=== PATIENT | male | born 1955 | race Caucasian/White ===

== ENCOUNTER 2018-02-11 18:46 | Observation (INO) ==
[2018-02-11] MEDS ORDERED: 0.9 % Sodium Chloride 1,000 ML IVC ONE (19:58)
[2018-02-11] MEDS ORDERED: Ondansetron 4 MG/2 ML VIAL IVP ONE (19:58)
--- NOTE | 2018-02-11 20:02 | Emergency Department Note ---
Disposition Clinical Impression: Diarrhea Qualifiers: Diarrhea type: unspecified type Qualified Code(s): R19.7 - Diarrhea, unspecified Nausea and vomiting Qualifiers: Vomiting type: unspecified Vomiting Intractability: intractable Qualified Code(s): R11.2 - Nausea with vomiting, unspecified Disposition: Admitted As Inpatient Condition: Undetermined [facility]: [facility]Primary Care Provider[facility] - Forms: ED Satisfaction Letter Time of Disposition: 22:51 Nausea/Vomiting/Diarrhea HPI - General Chief complaint: ED Nausea/Vomiting/Diarrhea Stated complaint: Vomiting,diarrhea, exposed to c-diff Time Seen by Provider: 02/11/18 19:17 Source: patient Mode of arrival: ambulatory Limitations: no limitations Nursing Notes Reviewed: Yes Vital Signs Reviewed: Yes - History of Present Illness HPI Narrative: 62-year-old male with history of hypertension arrives to the emergency department with complaint of diffuse abdominal pain, nausea, vomiting, diarrhea. He is also feeling like he is given a pass out. The patient is in the bed crying because he is not feeling well. The patient states that his had similar complaints one day ago. Patient denies any melena, hematochezia, chest pain, difficulty breathing. He should not is otherwise without any other complaints at this time. - Related Data Home Medications Medication Instructions Recorded Confirmed RX: Aspirin [Lo-Dose Aspirin EC] 81 mg PO DAILY 01/13/17 01/13/17 RX: Atenolol [Tenormin] 25 mg PO DAILY 01/13/17 01/13/17 RX: Atorvastatin Calcium [Lipitor] 20 mg PO HS 01/13/17 01/13/17 RX: Gabapentin [Neurontin] 300 mg PO TID 01/13/17 01/13/17 RX: Meloxicam [Mobic] 7.5 mg PO DAILY 01/13/17 01/13/17 RX: Tramadol HCl [Ultram] 50 mg PO TID PRN 01/13/17 01/13/17 Previous Rx's Medication Instructions Recorded RX: OxyCODONE/APAP 10/325 1 each PO Q6HR PRN #24 tablet 01/13/17 [Percocet 10/325 MG] Allergies Allergy/AdvReac Type Severity Reaction Status Date / Time No Known Allergies Allergy Verified 01/13/17 13:00 All systems ED: reviewed and negative except as stated. Constitutional: Reports: weakness. Denies: fever, chills ENT ED: Denies: dysphagia Cardiovascular: Denies: chest pain Respiratory: Denies: dyspnea Gastrointestinal: Reports: abdominal pain, nausea, vomiting, diarrhea. Denies: constipation, hematemesis, melena, hematochezia Genitourinary: Denies: urgency, dysuria Musculoskeletal: Denies: back pain Integumentary: Denies: rash Neurological: Denies: headache Past Medical History - Past Medical History Attestation: Yes The following information was validated with the patient. Source: patient, old records reviewed Medical history: Reports: GERD, hyperlipidemia, hypertension, kidney stones, RA Surgical history: Reports: non-contributory Psychiatric history: Reports: no psych history - Social History Smoking Status: Never smoker Smokeless Tobacco Status: No Alcohol use: Reports: rarely Drug use: Reports: none Physical Exam - General Limitations: no limitations General appearance: alert, in distress (secondary to pain) - Head Head exam: atraumatic, normocephalic, normal inspection - Eye Eye exam: Present: normal appearance, PERRL, EOMI - ENT ENT exam: normal exam, normal oropharynx, mucous membranes moist - Neck Neck exam: Present: normal inspection - Chest Chest inspection: Present: normal inspection, symmetric chest wall rise - Respiratory Respiratory exam: Present: normal lung sounds bilaterally - Cardiovascular Cardiovascular exam: Present: regular rate, normal rhythm, normal heart sounds - Abdominal Exam Abdominal exam: Present: soft, tenderness (diffuse). Absent: distention, guarding, rebound, rigidity, Varela's sign, Rovsing's sign, hernia - Extremities Exam Extremities exam: Present: normal inspection, full ROM. Absent: tenderness, pedal edema - Neurological Exam Neurological exam: Present: alert, oriented X3 - Skin Skin exam: Present: warm, dry, intact, normal color Course Vital Signs Temperature 97.9 F 02/11/18 19:00 Pulse Rate 95 02/11/18 19:00 Respiratory Rate 18 02/11/18 19:00 Blood Pressure 125/75 02/11/18 19:00 O2 Sat by Pulse Oximetry 96 02/11/18 19:00 Temperature 97.9 F 02/11/18 19:38 Pulse Rate 95 02/11/18 22:31 Respiratory Rate 20 02/11/18 22:31 Blood Pressure 142/102 02/11/18 22:31 O2 Sat by Pulse Oximetry 95 02/11/18 22:31 Oxygen Delivery Oxygen Delivery Room Air Nausea/Vomiting/Diarrhea - MDM Narrative Medical decision making narrative: Patient's work-up in the emergency department demonstrates no acute process with the exception of likely ileitis secondary to diarrheal infection. The patient will be admitted because we cannot get his nausea and vomiting under control here in the emergency department. The patient states he does not for comfortable going home at this time because of the vomiting. The patient states his pain is a little bit better but denies any other complaints at this time. We will admit the patient to the hospital for nausea control and IV hydration. No further questions or concerns noted. Accepted by Dr. Dueñas. - Lab Data Lab results reviewed: Yes I reviewed the patient's lab results. Result diagrams: 02/11/18 19:49 02/11/18 19:49 Lab Results 02/11/18 02/11/18 Range/Units 19:49 19:49 WBC 12.5 H (4.3-11.1) K/mcL RBC 5.69 H (4.19-5.50) M/mcL Hgb 18.0 H (12.9-16.9) g/dL Hct 51.5 H (37.5-50.1) % MCV 90.5 (83.0-100.0) fL MCH 31.6 (28.0-33.3) pg MCHC 35.0 (31.6-35.5) g/dL RDW 13.5 (11.5-14.5) % Plt Count 212 (140-400) K/mcL MPV 9.5 (9.4-12.4) fL Immature Gran % 0.4 (0-4) % Seg Neutrophils % 84.0 % Lymphocytes % 7.2 % Monocytes % 7.5 % Eosinophils % 0.6 % Basophils % 0.3 % Neutrophils # 10.5 H (1.6-8.9) K/mcL Lymphocytes # 0.9 (0.6-4.6) K/mcL Monocytes # 0.9 (0.0-1.3) K/mcL Eosinophils # 0.1 (0.0-0.6) K/mcL Basophils # 0.0 (0.0-0.2) K/mcL Sodium 140 (136-145) mEq/L Potassium 3.9 (3.5-5.1) mEq/L Chloride 102 (98-107) mEq/L Carbon Dioxide 24 (23-29) mEq/L BUN 18 (8-23) mg/dL Creatinine 1.40 H (0.70-1.30) mg/dL Est GFR ( Amer) > 60 (> 60) Est GFR (Non-Af Amer) 51 L (> 60) BUN/Creatinine Ratio 13 (6-26) Glucose 113 H (70-105) mg/dL Calculated Osmolality 293 (280-300) Calcium 9.7 (8.6-10.3) mg/dL Total Bilirubin 1.1 H (0.3-1.0) mg/dL Direct Bilirubin 0.2 (0.0-0.2) mg/dL Indirect Bilirubin 0.9 (0.0-1.2) mg/dL AST 32 (13-39) Units/L ALT 28 (7-52) Units/L Alkaline Phosphatase 55 (34-104) Units/L Troponin I < 0.03 (< 0.04) ng/mL Serum Total Protein 7.9 (6.4-8.9) g/dL Albumin 4.7 (3.5-5.7) g/dL Globulin 3.2 (2.4-3.5) g/dL Albumin/Globulin Ratio 1.5 (1.1-2.2) Lipase 30 (11-82) Units/L - Radiology Data Radiology results reviewed: Yes I reviewed the patient's radiology results. Abdomen/Pelvis CT 02/11/18 19:58 IMPRESSION: 1. No evidence for bowel obstruction. Nonspecific fluid-filled loops of small and large intestine throughout the abdomen. Correlate clinically for diarrhea. No abnormal bowel wall thickening identified. 2. Colonic diverticulosis without evidence for diverticulitis. 3. Nonobstructing right nephrolithiasis. D/ / Chris Penn MD / Chris Penn MD Interpreting Provider: Chris Penn MD Attestation Statement - Attestation Attestation: Resident Attestation: I examined this patient and my medical decision making was reviewed with the Resident Physician. I agree with the documented findings, disposition and treatment plan as described except to the extent set forth below. We independently had [id number] contact with the patient. Patient with nausea and vomiting started prior to arrival. Patient states was diagnosed admitted for the same. If her symptoms started the day before. She is currently undergoing workup while in the hospital. On my evaluation the patient had artier received fluids and Zofran. Patient's symptoms have not significantly improved. Patient went to lie flat and vomited multiple times. Patient will undergo further treatments in regards to nausea and vomiting. Patient will likely require admission secondary to failed outpatient management. CT scan pending. CT scan negative. Other medications have not resolved the nausea. Patient is more comfortable after medications but will receive IV Phenergan as well. Patient moderate distress secondary to nausea and vomiting, abdomen soft without significant tenderness, no guarding no rebound.
[2018-02-11 20:15] LABS: Basophils % 0.3 %; Eosinophils # 0.1 K/mcL (0.0-0.6); Eosinophils % 0.6 %; Hematocrit 51.5 % (37.5-50.1); Immature Granulocytes % 0.4 % (0-4); Lymphocytes # 0.9 K/mcL (0.6-4.6); Lymphocytes % 7.2 %; Mean Corpuscular Hemoglobin 31.6 pg (28.0-33.3); Mean Corpuscular Volume 90.5 fL (83.0-100.0); Mean Platelet Volume 9.5 fL (9.4-12.4); Monocytes # 0.9 K/mcL (0.0-1.3); Monocytes % 7.5 %; Neutrophils # 10.5 K/mcL (1.6-8.9); Platelet Count 212 K/mcL (140-400); Red Blood Count 5.69 M/mcL (4.19-5.50); Red Cell Distribution Width 13.5 % (11.5-14.5)
[2018-02-11 20:31] LABS: Troponin I < 0.03 ng/mL (< 0.04)
[2018-02-11 20:32] LABS: Alanine Aminotransferase 28 Units/L (7-52); Albumin 4.7 g/dL (3.5-5.7); Albumin/Globulin Ratio 1.5 (1.1-2.2); Alkaline Phosphatase 55 Units/L (34-104); Aspartate Amino Transferase 32 Units/L (13-39); BUN/Creatinine Ratio 13 (6-26); Bilirubin,Direct 0.2 mg/dL (0.0-0.2); Bilirubin,Indirect 0.9 mg/dL (0.0-1.2); Bilirubin,Total 1.1 mg/dL (0.3-1.0); Blood Urea Nitrogen 18 mg/dL (8-23); Calcium 9.7 mg/dL (8.6-10.3); Carbon Dioxide 24 mEq/L (23-29); Chloride 102 mEq/L (98-107); Globulin 3.2 g/dL (2.4-3.5); Glucose 113 mg/dL (70-105); Lipase 30 Units/L (11-82); Osmolality,Calculated 293 (280-300); Potassium 3.9 mEq/L (3.5-5.1); Sodium 140 mEq/L (136-145); Total Protein 7.9 g/dL (6.4-8.9); eGFR For Non-African Americans 51 (> 60)
[2018-02-11] MEDS ORDERED: Hyoscyamine SL 0.125 MG TAB.SUBL SL STA (21:32)
[2018-02-11] MEDS ORDERED: Metoclopramide 10 MG/2 ML VIAL IVP ONE (21:32)
[2018-02-11] MEDS ORDERED: *HR* Promethazine 25 MG/ML VIAL IVP ONE (22:21)
[2018-02-11] MEDS ORDERED: Naloxone 0.4 MG/ML INJ IVP PRN (23:02)
[2018-02-11] MEDS ORDERED: Ondansetron 4 MG/2 ML VIAL IVP PRN (23:07)
[2018-02-12] MEDS: 0.9 % Sodium Chloride 1,000 ML IVC SCH ×2 (00:19→14:11)
[2018-02-12] MEDS: *HR* Heparin 5,000 UNIT/ML VIAL SQ SCH ×4 (00:19→22:04)
[2018-02-12] MEDS ORDERED: Hyoscyamine SL 0.125 MG TAB.SUBL SL PRN (00:40)
[2018-02-12] MEDS ORDERED: traMADol 50 MG TABLET PO PRN (00:46)
[2018-02-12] MEDS ORDERED: OXYCODONE Oral CONC 10 MG/0.5 ML ORAL.SYG SL PRN (00:48)
[2018-02-12] MEDS ORDERED: Naloxone 0.4 MG/ML INJ IVP PRN (00:48)
--- NOTE | 2018-02-12 03:50 | Internal Med History&Physical ---
Date of Encounter: 02/12/18 Time of Encounter: 03:50 Internal Medicine - H&P: HPI Chief complaint: Intractable Nausea/Vomiting History of present illness: Mr. Mills is a 62 year old male with a past medical history of hypertension, kidney stones and arthritis who presents to the ED with a 1 day history of nausea, vomiting and abdominal pain with diarrhea. Patient reports diffuse abdominal pain and watery diarrhea. He feels weak and has generalized aches and pains. His vomited several times nonbloody nonbilious emesis. Patient reports that his had similar complaints one day ago prior to his symptoms starting. Patient denies any melena, hematochezia, chest pain, difficulty breathing. No recent antibiotic use. On arrival patient was afebrile, hemodynamically stable. Initial laboratory findings were notable for mild leukocytosis and ESTEPHANIA. Patient admitted for intractable nausea and vomiting. Past Med Surg Social Fam HX - Past Medical History Medical history: GERD, hyperlipidemia, hypertension, kidney stones, RA, other Additional medical history: GASTRIC ULCER Psychiatric history: no psych history - Past Surgical History Surgical History: non-contributory Additional surgical history: RIGHT HAND - Social History Smoking Status: Never smoker Smokeless Tobacco Status: No Alcohol use: rarely Drug use: none Internal Medicine - H&P: Meds Aspirin [Lo-Dose Aspirin EC] 81 mg PO DAILY 01/13/17 [History] Atenolol [Tenormin] 25 mg PO DAILY 01/13/17 [History] Atorvastatin Calcium [Lipitor] 20 mg PO HS 01/13/17 [History] Gabapentin [Neurontin] 300 mg PO TID 01/13/17 [History] Meloxicam [Mobic] 7.5 mg PO DAILY 01/13/17 [History] OxyCODONE/APAP 10/325 [Percocet 10/325 MG] 1 each PO Q6HR PRN #24 tablet 01/13/17 [Rx] Tramadol HCl [Ultram] 50 mg PO TID PRN 01/13/17 [History] Allergy/AdvReac Type Severity Reaction Status Date / Time No Known Allergies Allergy Verified 01/13/17 13:00 All Systems PM: A 10-system review of systems was performed and is negative for pertinent findings except as documented above in the HPI. - Constitutional Constitutional: no chills, no fever(s), no night sweats - EENT Eyes: no change in vision, no discharge, no pain, no photophobia Ears: no ear discharge, no ear pain, no tinnitus Nose, mouth and throat: no dysphagia, no nasal discharge, no neck pain, no sore throat - Cardiovascular Cardiovascular ROS IM: no chest pain, no diaphoresis, no dyspnea, no lightheadedness, no palpitations, no syncope - Respiratory Respiratory: no cough, no dyspnea, no wheezing, no excessive phlegm production - Gastrointestinal Gastrointestinal: no abdominal pain, no diarrhea, no hematemesis, no hematochezia, no melena, no nausea, no vomiting - Musculoskeletal Musculoskeletal ROS IM: no numbness, no tingling - Integumentary Integumentary IM: no rash, no unusual bruising - Neurological Neurological ROS: no confusion, no convulsions, no focal weakness, no numbness, no tingling, no tremor(s) - Hematologic/Lymphatic Hematologic/Lymphatic: no easy bruising - Constitutional Vitals: Temp Pulse Resp BP Pulse Ox 100.3 F H 87 16 132/78 93 02/12/18 02:50 02/12/18 02:50 02/12/18 02:50 02/12/18 02:50 02/12/18 02:50 Exam: General: Alert and oriented 3 lying in bed in no acute distress Skin:Normal color, no rash, no lesions. HEENT:EOM, pupils equal, round and reactive. Cardiovascular:Normal S1 & S2, no rubs, murmurs or gallops. No JVD. Pulse reg ular. Lungs:Normal breath sounds, no wheezes or crackles. Abdomen:Soft, diffusely tender. No rebound or guarding noted. Extremities:No deformity, no edema or tenderness, no joint swelling or clubbing. Neurological:Normal cognition and motor skills. Pulses:Carotid and radial pulses normal +2. Rest of the physical exam is non contributory Internal Med - H&P Results - Labs CBC & Chem 7: 02/12/18 06:42 02/12/18 06:42 Labs: Short CBC 02/11/18 Range/Units 19:49 WBC 12.5 H (4.3-11.1) K/mcL Hgb 18.0 H (12.9-16.9) g/dL Hct 51.5 H (37.5-50.1) % Plt Count 212 (140-400) K/mcL Neutrophils # 10.5 H (1.6-8.9) K/mcL BMP 02/11/18 19:49 Sodium 140 Potassium 3.9 Chloride 102 Carbon Dioxide 24 BUN 18 Creatinine 1.40 H Glucose 113 H Calcium 9.7 Cardiac Enzymes 02/11/18 Range/Units 19:49 Troponin I < 0.03 (< 0.04) ng/mL Liver Function 02/11/18 Range/Units 19:49 Total Bilirubin 1.1 H (0.3-1.0) mg/dL Direct Bilirubin 0.2 (0.0-0.2) mg/dL AST 32 (13-39) Units/L ALT 28 (7-52) Units/L Alkaline Phosphatase 55 (34-104) Units/L Albumin 4.7 (3.5-5.7) g/dL - Impressions ITS Impressions Abdomen/Pelvis CT 02/11/18 19:58 IMPRESSION: 1. No evidence for bowel obstruction. Nonspecific fluid-filled loops of small and large intestine throughout the abdomen. Correlate clinically for diarrhea. No abnormal bowel wall thickening identified. 2. Colonic diverticulosis without evidence for diverticulitis. 3. Nonobstructing right nephrolithiasis. D/ / Chris Penn MD / Chris Penn MD Interpreting Provider: Chris Penn MD - Assessment and plan (1) Acute kidney injury Current Visit: Yes Status: Acute Assessment and plan: Patient presents with acute kidney injury with a creatinine of 1.4. Likely prerenal secondary to dehydration. -Continue with fluid support (2) Diarrhea Current Visit: Yes Status: Acute Assessment and plan: Diarrhea likely secondary to acute gastroenteritis -Continue with supportive care Qualifiers: Diarrhea type: unspecified type Qualified Code(s): R19.7 - Diarrhea, unspecified (3) Nausea and vomiting Current Visit: Yes Status: Acute Assessment and plan: Nausea and vomiting likely secondary to acute gastroenteritis. -Anti-emetics as needed Qualifiers: Vomiting type: unspecified Vomiting Intractability: intractable Qualified Code(s): R11.2 - Nausea with vomiting, unspecified (4) DVT prophylaxis Current Visit: Yes Status: Acute Assessment and plan: Subcutaneous heparin - Time Spent With Patient Total time spent is greater than 50% in coordination of care (as documented) at patient's floor/unit and/or counseling patient:
[2018-02-12 07:22] LABS: Basophils % 0.4 %; Eosinophils % 0.4 %; Hematocrit 47.8 % (37.5-50.1); Immature Granulocytes % 0.3 % (0-4); Lymphocytes # 0.7 K/mcL (0.6-4.6); Lymphocytes % 9.5 %; Mean Corpuscular HGB Conc 34.1 g/dL (31.6-35.5); Mean Corpuscular Hemoglobin 31.4 pg (28.0-33.3); Mean Corpuscular Volume 92.1 fL (83.0-100.0); Mean Platelet Volume 9.7 fL (9.4-12.4); Monocytes # 0.5 K/mcL (0.0-1.3); Monocytes % 6.7 %; Neutrophils # 6.4 K/mcL (1.6-8.9); Platelet Count 185 K/mcL (140-400); Red Blood Count 5.19 M/mcL (4.19-5.50); Red Cell Distribution Width 13.6 % (11.5-14.5); Segmented Neutrophils % 82.7 %
[2018-02-12 07:24] LABS: Hemoglobin 16.3 g/dL (12.9-16.9)
[2018-02-12 07:43] LABS: Alanine Aminotransferase 21 Units/L (7-52); Albumin 3.8 g/dL (3.5-5.7); Albumin/Globulin Ratio 1.4 (1.1-2.2); Alkaline Phosphatase 43 Units/L (34-104); Aspartate Amino Transferase 22 Units/L (13-39); BUN/Creatinine Ratio 14 (6-26); Bilirubin,Total 1.2 mg/dL (0.3-1.0); Blood Urea Nitrogen 19 mg/dL (8-23); Calcium 8.3 mg/dL (8.6-10.3); Carbon Dioxide 23 mEq/L (23-29); Chloride 107 mEq/L (98-107); Globulin 2.7 g/dL (2.4-3.5); Glucose 111 mg/dL (70-105); Osmolality,Calculated 291 (280-300); Potassium 3.6 mEq/L (3.5-5.1); Sodium 139 mEq/L (136-145); Total Protein 6.5 g/dL (6.4-8.9); eGFR For Non-African Americans 55 (> 60)
[2018-02-12] MEDS: Aspirin Enteric Coated 81 MG Tablet PO SCH (09:25)
[2018-02-12] MEDS: Gabapentin 300 MG CAPSULE PO SCH ×3 (09:25→22:04)
--- NOTE | 2018-02-12 11:16 | Event Note ---
Date of Encounter: 02/12/18 Time of Encounter: 11:14 Patient was seen and examined earlier this am by hospitalist services. Currently does not appear to be in any distress. He does complain of N/V/D Stool sample sent. Discussed treatment plan with the patient who verbalized understanding
[2018-02-12 12:36] LABS: Adenovirus F 40/41 PCR Not detected (Not detect); Astrovirus PCR Not detected (Not detect); C.difficile Toxin A/B Gene PCR Not detected (Not detect); Campylobacter by PCR Not detected (Not detect); Cryptosporidium by PCR Not detected (Not detect); Cyclospora cayetanensis PCR Not detected (Not detect); E. coli O157 by PCR Not detected (Not detect); Entamoeba histolytica PCR Not detected (Not detect); Enteroaggregative E.coli(EAEC) Not detected (Not detect); Enteropathogenic E.coli(EPEC) Not detected (Not detect); Enterotoxigenic E.coli (ETEC) Not detected (Not detect); Norovirus GI/GII PCR DETECTED (Not detect); Plesiomonas shigelloides PCR Not detected (Not detect); Rotavirus A PCR Not detected (Not detect); Salmonella PCR Not detected (Not detect); Sapovirus PCR Not detected (Not detect); Shig/EnteroinvasiveE coli EIEC Not detected (Not detect); Shigalike tox-prod E coli STEC Not detected (Not detect); Vibrio PCR Not detected (Not detect); Vibrio cholerae PCR Not detected (Not detect); Yersinia enterocolitica PCR Not detected (Not detect)
[2018-02-12 12:38] LABS: Giardia lamblia PCR DETECTED (Not detect)
[2018-02-12] MEDS ORDERED: Acetaminophen 325 MG TABLET PO PRN (22:32)
[2018-02-13] MEDS: *HR* Heparin 5,000 UNIT/ML VIAL SQ SCH (06:03)
[2018-02-13] MEDS: 0.9 % Sodium Chloride 1,000 ML IVC SCH (10:08)
[2018-02-13] MEDS: Gabapentin 300 MG CAPSULE PO SCH ×2 (10:09→10:11)
[2018-02-13] MEDS: Aspirin Enteric Coated 81 MG Tablet PO SCH (10:09)
--- NOTE | 2018-02-13 12:02 | Discharge Summary ---
- NOTES TO OUTPATIENT PROVIDER Notes to Outpatient Provider: Will need to monitor labs - Had ESTEPHANIA -Giardia - monitor creatinine electrolytes Date of Encounter: 02/13/18 Time of Encounter: 11:59 - Discharge Diagnosis (1) Diarrhea Priority: Primary Status: Acute Qualifiers: Diarrhea type: unspecified type Qualified Code(s): R19.7 - Diarrhea, unspec ified (2) Nausea and vomiting Priority: Primary Status: Acute Qualifiers: Vomiting type: unspecified Vomiting Intractability: intractable Qualified Code(s): R11.2 - Nausea with vomiting, unspecified (3) Acute kidney injury Priority: Secondary Status: Acute Hospital course: Mr. Mills is a 62 year old male with past medical history of hypertension kidney stones and arthritis presented to [facility] after experiencing nausea vomiting abdominal pain and diarrhea for proximal and one day. No recent antibiotic use denies any sick contacts initial findings were notable for mild leukocytosis and AK I. Patient was given IV fluids as well as antiemetics GI panel was sent and was found to have Giardia. After receiving fluids is a candidate improved he has been able to tolerate oral intake and has been eating and drinking without any difficulty. His amounts of stools have decreased-he has had only one stool today He was given a prescription for Flagyl. Patient states he feels much better advised patient to follow-up with primary care provider. Also advised patient to not take any medications to stop his diarrhea into return to hospital if diarrhea continues or he is unable to eat or drink. Patient verbalized understanding currently he is hemodynamically stable at this time and he is ready for discharge. - Time Spent with Patient Total time spent providing and/or coordinating discharge services: - Discharge Medications Prescriptions: metroNIDAZOLE [Flagyl] 500 mg PO BID #14 tablet Home Medications: Atorvastatin [Lipitor] 20 mg PO HS 02/13/18 [History] Lisinopril [Zestril] 10 mg PO DAILY 02/13/18 [History] Omeprazole [PriLOSEC] 20 mg PO DAILY 02/13/18 [History] metroNIDAZOLE [Flagyl] 500 mg PO BID #14 tablet 02/13/18 [Rx] Allergies/Adverse Reactions: Allergy/AdvReac Type Severity Reaction Status Date / Time No Known Allergies Allergy Verified 02/13/18 12:51 Date of admission: 02/11/18 23:40 [facility] care [facility] Discharging clinician: [place] Anticipated date of discharge: 02/13/18 - Constitutional Vitals: Temp Pulse Resp BP Pulse Ox 97.7 F 58 15 111/71 95 02/13/18 07:44 02/13/18 07:44 02/13/18 07:44 02/13/18 07:44 02/13/18 07:44 General appearance: Present: A&O X 3 Exam: . - Head Head exam: Present: atraumatic, normocephalic - Eye Eye exam: Present: PERRL, conjuntiva pink, sclera anicteric Pupils: Present: PERRL - Neck Neck exam general surgery: Present: supple, trachea midline. Absent: lymphade nopathy - Respiratory Respiratory exam: Present: CTAB. Absent: accessory muscle use, rales, rhonchi, wheezes - Cardiovascular Cardiovascular exam: Present: RRR, +S1, +S2. Absent: diastolic murmur, gallop, rubs, systolic murmur - GI/Abdominal GI/Abdominal exam: Present: normal bowel sounds, soft, no peritoneal signs. Absent: distended, tenderness - Extremities Exam Extremities exam: Present: warm, radial pulses palpable and symmetrical. Absent: calf tenderness, cyanotic, pedal edema - Neurological Exam Neurological exam: Present: CN II-XII intact, oriented X3, no focal deficits. Absent: pronater drift, facial droop, speech deficit - Skin Skin exam: Present: dry, intact - Patient Status Disposition: Home, Self-Care Condition: Undetermined Functional capacity at discharge: independent ambulation Overall status at discharge: patient is back to baseline - Discharge Instructions Instructions: Metronidazole (By mouth), Giardiasis (DC) Follow [facility]: [facility]Primary Care Provider[facility] - - Diet and Activity Activity: increase activity as tolerated Diet: advance to your usual diet
[2018-02-13 12:12] VITALS: BP 122/82
--- NOTE | 2018-02-13 16:00 | Electrocardiograph Report ---
[address] [place], [place] [address] Test Date: 2018-02-11 Pat Name: Jeff Mills Department: [id number] Room: 3B39 Gender: M Associate Product Manager: : [id number] Requested By: Sujit Castillo Order Number: [id number] Reading MD: Nallely Syed Measurements Intervals [place] Rate: 70 P: 75 WI: 152 QRS: 76 QRSD: 90 T: 110 QT: 396 QTc: 428 Interpretive Statements Sinus rhythm Nonspecific T abnormalities, lateral leads Electronically Signed On 02-13-2018 15:58:15 EST by Nallely Syed
== END 2018-02-13 12:54 | disposition home or self-care (01) ==
LOC: EMEROOARM 18:46 → 3BNU 18:46
PROVIDERS: ADMIT Internal Medicine; ATTEND Internal Medicine

== ENCOUNTER 2019-10-28 09:27 | Observation (INO) ==
[2019-10-28] MEDS ORDERED: Morphine Sulfate 2 MG/ML SYRINGE IVP ONE (09:38)
[2019-10-28] MEDS ORDERED: Ondansetron 4 MG/2 ML VIAL IVP STA (09:38)
[2019-10-28] MEDS ORDERED: 0.9 % Sodium Chloride 1,000 ML IVC ONE (09:38)
[2019-10-28 10:01] LABS: Basophils # 0.1 K/mcL (0.0-0.2); Basophils % 0.8 %; Eosinophils # 0.2 K/mcL (0.0-0.6); Eosinophils % 2.5 %; Hematocrit 44.8 % (37.5-50.1); Immature Granulocytes % 0.3 % (0-4); Lymphocytes # 2.3 K/mcL (0.6-4.6); Lymphocytes % 31.4 %; Mean Corpuscular HGB Conc 33.5 g/dL (31.6-35.5); Mean Corpuscular Hemoglobin 30.8 pg (28.0-33.3); Mean Platelet Volume 9.4 fL (9.4-12.4); Monocytes % 13.1 %; Neutrophils # 3.8 K/mcL (1.6-8.9); Platelet Count 256 K/mcL (140-400); Red Blood Count 4.87 M/mcL (4.19-5.50); Red Cell Distribution Width 12.7 % (11.5-14.5); Segmented Neutrophils % 51.9 %; White Blood Count 7.3 K/mcL (4.3-11.1)
[2019-10-28] MEDS ORDERED: *HR* FentaNYL (PF) 100 MCG/2 ML VIAL IVP ONE (10:02)
[2019-10-28 10:21] LABS: Alanine Aminotransferase 20 Units/L (7-52); Albumin 3.9 g/dL (3.5-5.7); Albumin/Globulin Ratio 1.3 (1.1-2.2); Alkaline Phosphatase 56 Units/L (34-104); Amylase 36 Units/L (29-103); Aspartate Amino Transferase 20 Units/L (13-39); BUN/Creatinine Ratio 12 (6-26); Bilirubin,Direct 0.1 mg/dL (0.0-0.2); Bilirubin,Indirect 0.3 mg/dL (0.0-1.0); Bilirubin,Total 0.4 mg/dL (0.3-1.0); Blood Urea Nitrogen 17 mg/dL (8-23); Carbon Dioxide 24 mEq/L (23-29); Chloride 105 mEq/L (98-107); Glucose 137 mg/dL (70-105); Lipase 24 Units/L (11-82); Osmolality,Calculated 292 (280-300); Potassium 3.9 mEq/L (3.5-5.1); Sodium 139 mEq/L (136-145); Total Protein 6.9 g/dL (6.4-8.9); eGFR For African Americans > 60 (> 60); eGFR For Non-African Americans 50 (> 60)
[2019-10-28] MEDS ORDERED: Naloxone 0.4 MG/ML INJ IVP PRN ×2 (10:41→17:13)
[2019-10-28 11:45] LABS: Adenovirus Not Detected (Not Detect); Bordetella Pertussis Not Detected (Not Detect); Chlamydophila pneumoniae Not Detected (Not Detect); Coronavirus 229E Not Detected (Not Detect); Coronavirus HKU1 Not Detected (Not Detect); Coronavirus NL63 Not Detected (Not Detect); Coronavirus OC43 Not Detected (Not Detect); Human Metapneumovirus Not Detected (Not Detect); Human Rhinovirus/Enterovirus Not Detected (Not Detect); Influenza A Subtype 2009 H1 Not Detected (Not Detect); Influenza B Not Detected (Not Detect); Mycoplasma pneumoniae Not Detected (Not Detect); Parainfluenza Virus 1 Not Detected (Not Detect); Parainfluenza Virus 2 Not Detected (Not Detect); Parainfluenza Virus 3 Not Detected (Not Detect); Parainfluenza Virus 4 Not Detected (Not Detect); Respiratory Syncytial Virus Not Detected (Not Detect); SARS-CoV-2 Not Detected (Not Detect)
[2019-10-28 12:16] LABS: Bilirubin,Urine Negative (Negative); Blood,Urine Large (Negative); Clarity,Urine Turbid (Clear); Color,Urine Light-Orange (Yellow); Glucose,Urine (UA) Normal (Normal); Hyaline Casts,Urine Few per lpf (None Seen); Ketones,Urine Negative (Negative); Leukocyte Esterase,Urine Negative (Negative); Mucus,Urine Few per lpf (None-Few); Nitrite,Urine Negative (Negative); PH,Urine 5.5 pH Units (5.0-8.0); Protein,Urine 30 mg/dL (Neg-Trace); RBC,Urine TNTC per hpf (0-3); Squamous Epithelial Cell,Urine Few per hpf (None-Few); Urobilinogen,Urine Normal (Normal); WBC,Urine 15-30 per hpf (0-3)
[2019-10-28] MEDS ORDERED: Morphine Sulfate 2 MG/ML SYRINGE IVP PRN (12:50)
[2019-10-28] MEDS ORDERED: *HR* Heparin 5,000 UNIT/ML VIAL SQ SCH (14:00)
[2019-10-28] MEDS ORDERED: *HR* Midazolam HCl 2 MG/2 ML VIAL ONE (14:59)
[2019-10-28] MEDS ORDERED: Lidocaine -MPF 2% 2 ML VIAL ONE (14:59)
[2019-10-28] MEDS ORDERED: *HR* Propofol 200 MG/20 ML VIAL IVP ONE (14:59)
[2019-10-28] MEDS ORDERED: Ondansetron 4 MG/2 ML VIAL ONE (14:59)
[2019-10-28] MEDS ORDERED: Dexamethasone 4 MG/ML VIAL ONE (14:59)
[2019-10-28] MEDS ORDERED: *HR* FentaNYL (PF) 100 MCG/2 ML VIAL ONE (14:59)
[2019-10-28] MEDS ORDERED: *HR* Labetalol 20 MG/4 ML SYRINGE IVP PRN (15:20)
[2019-10-28] MEDS ORDERED: *HR* Promethazine 25 MG/ML VIAL IVP PRN (15:20)
[2019-10-28] MEDS ORDERED: *HR* OxyCODONE Immed Rel 5 MG TABLET PO PRN (15:20)
[2019-10-28] MEDS ORDERED: Ondansetron 4 MG/2 ML VIAL IVP PRN (15:20)
[2019-10-28] MEDS ORDERED: Isovue-300 50ML VIAL ONE (15:24)
[2019-10-28] MEDS ORDERED: MetroNIDAZOLE 500 MG/100 ML 500 MG/100 ML BAG IVPB SCH (16:00)
[2019-10-28] MEDS ORDERED: EPHEDrine 50 MG/ML VIAL ONE (16:07)
[2019-10-28] MEDS: *HR* HYDROmorphone (PF) 1 MG/ML SYRINGE IVP PRN ×2 (16:35→16:40)
[2019-10-28] MEDS: Morphine Sulfate 2 MG/ML SYRINGE IVP PRN ×2 (17:31→21:43)
[2019-10-28] MEDS: Sennosides/Docusate Sodium TABLET PO SCH (20:28)
[2019-10-28] MEDS ORDERED: Sennosides/Docusate Sodium TABLET PO SCH (21:00)
[2019-10-28] MEDS: *HR* Heparin 5,000 UNIT/ML VIAL SQ SCH (21:43)
[2019-10-28] MEDS: MetroNIDAZOLE 500 MG/100 ML 500 MG/100 ML BAG IVPB SCH (23:44)
[2019-10-29] MEDS: Morphine Sulfate 2 MG/ML SYRINGE IVP PRN ×2 (02:35→06:27)
[2019-10-29 04:25] LABS: Basophils % 0.1 %; Hematocrit 39.6 % (37.5-50.1); Hemoglobin 13.5 g/dL (12.9-16.9); Immature Granulocytes % 0.4 % (0-4); Lymphocytes # 0.6 K/mcL (0.6-4.6); Lymphocytes % 7.3 %; Mean Corpuscular HGB Conc 34.1 g/dL (31.6-35.5); Mean Corpuscular Volume 93.8 fL (83.0-100.0); Mean Platelet Volume 9.5 fL (9.4-12.4); Monocytes # 0.3 K/mcL (0.0-1.3); Monocytes % 3.2 %; Platelet Count 260 K/mcL (140-400); Red Blood Count 4.22 M/mcL (4.19-5.50); Red Cell Distribution Width 12.6 % (11.5-14.5); White Blood Count 7.9 K/mcL (4.3-11.1)
[2019-10-29 04:44] LABS: BUN/Creatinine Ratio 12 (6-26); Blood Urea Nitrogen 16 mg/dL (8-23); Calcium 8.8 mg/dL (8.6-10.3); Carbon Dioxide 23 mEq/L (23-29); Chloride 105 mEq/L (98-107); Glucose 128 mg/dL (70-105); Osmolality,Calculated 285 (280-300); Potassium 4.5 mEq/L (3.5-5.1); Sodium 136 mEq/L (136-145); eGFR For African Americans > 60 (> 60); eGFR For Non-African Americans 56 (> 60)
[2019-10-29] MEDS: *HR* Heparin 5,000 UNIT/ML VIAL SQ SCH (05:35)
[2019-10-29 06:54] VITALS: BP 109/63
[2019-10-29] MEDS: Sennosides/Docusate Sodium TABLET PO SCH (08:14)
[2019-10-29] MEDS: MetroNIDAZOLE 500 MG/100 ML 500 MG/100 ML BAG IVPB SCH (08:15)
[2019-10-29] MEDS ORDERED: valACYclovir 500 MG TABLET PO SCH (09:00)
[2019-10-29] MEDS ORDERED: METRONIDAZOLE APPL TP SCH (09:00)
[2019-10-29] MEDS ORDERED: amLODIPine 5 MG TABLET PO SCH ×2 (09:00)
== END 2019-10-29 10:30 | disposition home or self-care (01) ==
LOC: EMEROOARM 09:27 → 3BNU 09:27 → SUATTDRO 11:51 → 3BNU 12:25
PROVIDERS: ADMIT Internal Medicine; ATTEND Internal Medicine